=== PATIENT | female | born 1955 | race Caucasian/White ===

== ENCOUNTER 2017-04-05 10:58 | Inpatient (IN) | payer BC ==
[2017-04-05] MEDS ORDERED: Ondansetron HCl/PF 4 MG/2 ML Vial ONE ×2 (13:26→16:08)
[2017-04-05] MEDS ORDERED: Morphine 4 MG/ML VIAL ONE ×2 (13:26→18:39)
[2017-04-05] MEDS ORDERED: Ampicillin/Sulbactam 3 GM, Syringe 1.6 ML in Sterile Water 6.4 ML SLOW IVP SCH ×2 (13:30→22:00)
[2017-04-05] MEDS ORDERED: Sodium Chloride 0.9% 1,000 ML IV SCH (15:08)
[2017-04-05] MEDS ORDERED: Ondansetron HCl/PF 4 MG/2 ML Vial IVP PRN ×3 (15:09→19:30)
[2017-04-05] MEDS ORDERED: PROVENTIL INHALER 6.7 G (200 INHALATIONS) INH PRN (15:09)
[2017-04-05 15:11] VITALS: BMI 36.6
[2017-04-05] MEDS ORDERED: Chlorhexidine Gluconate 15 ML UDCUP SSP ONE (15:31)
[2017-04-05] MEDS ORDERED: Lidocaine 2% w/Epinephrine 1:200K 20 ML VIAL ONE (15:31)
[2017-04-05] MEDS ORDERED: Morphine PF 1 MG/ML SYR IVP PRN (15:33)
[2017-04-05] MEDS ORDERED: Fentanyl 100 MCG/2 ML VIAL ONE ×2 (15:40→18:55)
[2017-04-05] MEDS ORDERED: Oxymetazoline HCl 0.05% ( 15 ML ) ONE (15:40)
[2017-04-05] MEDS ORDERED: Morphine 4 MG/ML Carpuject ONE (15:47)
[2017-04-05] MEDS ORDERED: Propofol 200 MG/20 ML VIAL ONE (16:08)
[2017-04-05] MEDS ORDERED: Lidocaine 2% PF 10 ML AMP (For Epidural Use) ONE (16:08)
[2017-04-05] MEDS ORDERED: ePHEDrine/0.9% NaCl/PF SYRINGE 50 mg/10 ml ONE (16:08)
[2017-04-05] MEDS ORDERED: PHENYLEPHRINE-NS 100 MCG/ML 10 ML SYRINGE ONE (16:08)
[2017-04-05] MEDS ORDERED: Succinylcholine Chloride 20 MG/ML 10 ml SYRINGE FS ONE (16:08)
[2017-04-05] MEDS ORDERED: Dexamethasone 20 MG/5 ML VIAL ONE (16:08)
--- NOTE | 2017-04-05 16:08 | HP ---
HISTORY OF PRESENT ILLNESS: Ms. Dial is a 61-year-old woman. She has been experimenting some redness and pain in her submandibular area. She was seen at an out of facility ER and she was e valuated by Oral surgery and she was transferred to this facility for management. According to the p [facility], her problem started about 3 days ago. She was found to have submandibular cellulitis with po ssible osteomyelitis. She denies any fever. PAST MEDICAL HISTORY: Remarkable for hypertension. She denies heart disease, lung disease, liver di sease. PAST SURGICAL HISTORY: Remarkable for right knee surgery. ALLERGIES: She has allergy to SULFA. SOCIAL HISTORY: She is an active smoker. She has a [id number] history of cigarette smoking. She denies drug abuse. She claims that she drinks socially. FAMILY HISTORY: Reviewed and is not contributory. HOME MEDICATIONS: Not available at this time for identification. REVIEW OF SYSTEMS: Constitutional: She denies any fever, denies weakness. HEENT: No headache. No ocular pain, no sor e throat, no rhinorrhea, no earache, no epistaxis. Neck: No neck pain, no neck stiffness. Cardiova scular: No shortness of breath. No chest pain. Pulmonary: No coughing. Gastrointestinal: No paul sea, no vomiting, no diarrhea, no abdominal pain. Genitourinary: No dysuria, no hematuria. Endocri nology: No heat or cold intolerance. No polyuria, polydipsia or polyphagia. Musculoskeletal: Some pain in the submandibular area associated with cellulitis. Skin: As mentioned above. Allergies: No hay fever. Hematology: No abnormal bleeding, no ecchymosis. Lymphatic: No palpable lymphadenop athy, no painful lymphadenopathy. Psychiatric: No anxiety. She is very hostile. Neurologic: No s eizure. PHYSICAL EXAMINATION: At the current time, GENERA: She is alert, oriented, in no distress and as mentioned earlier, very hostile complaining th at too many people are asking her questions. VITAL SIGNS: Showed temperature of 99.2, pulse rate 80, respiratory rate 20, blood pressure 102/71. HEENT: Head is normocephalic and atraumatic. Both pupils are equally reactive. Ears and nose are n ormal. Oral mucosa is moist. Pharyngeal area is clear with no exudate. No hyperemia. She has some redness in the submandibular area and which is very tender according to the patient, she did not let me touch. NECK: Supple. There is no distention of the jugular vein. No lymphadenopathy felt. Thyroid gland not palpable. There is no carotid bruit. CHEST: Symmetrical with regular S1, S2. LUNGS: Clear. ABDOMEN: Soft. Bowel sounds are heard, could not appreciate any organomegaly. There is no focal ar ea of tenderness. EXTREMITIES: Limbs showed no edema. NEUROLOGIC: She moves all extremities. LABORATORY DATA: Chemistry and electrolytes, CBC are requested. ASSESSMENT AND PLAN: This is a 61-year-old woman with the history of hypertension who is being admitted with sub mandibular cellulitis. Oral Surgery referred the patient for admission and we were consulted. Sharlene graves orders.
[2017-04-05] MEDS ORDERED: Sodium Chloride 0.9% 10 ML ONE (16:13)
[2017-04-05] MEDS: Sodium Chloride 0.9% 1,000 ML IV SCH (16:23)
[2017-04-05] MEDS ORDERED: Clindamycin/D5W 900 MG in Premix Bag 1 BAG IVPB SCH (17:00)
[2017-04-05] MEDS ORDERED: Morphine Sulfate 2 MG/ML SYRINGE SLOW IVP PRN (18:06)
[2017-04-05] MEDS ORDERED: Promethazine HCl 25 MG/ML VIAL SLOW IVP PRN (18:06)
[2017-04-05] MEDS ORDERED: Promethazine HCl 25 MG/ML VIAL IM PRN (18:06)
[2017-04-05] MEDS ORDERED: Ondansetron ODT 4 MG TAB SL PRN (19:30)
[2017-04-05 20:46] LABS: #Basophils 0.1 thou/uL (0.0-0.2); #Lymphocytes 0.4 thou/uL (1.20-3.40); #Monocytes 0.4 thou/uL (0.11-0.59); %Basophils 1.1 % (0.0-1.0); %Eosinophils 0.3 % (0.0-10.0); Hematocrit 37.9 % (36.0-47.0); Mean Platelet Volume 6.7 fL (7.4-10.4); Red Blood Cell (RBC) Count 4.36 mill/uL (4.20-5.40); White Blood Cell (WBC) Count 11.9 thou/uL (4.8-10.8)
[2017-04-05] MEDS: Famotidine/PF 20 mg/2ml Vial SLOW IVP SCH (21:00)
[2017-04-05] MEDS: Chlorhexidine Gluconate 15 ML UDCUP SSP SCH (21:00)
[2017-04-05 21:04] LABS: ALT (SGPT) 10 U/L (8-55); AST (SGOT) 10 U/L (5-34); Alkaline Phosphatase 31 U/L (40-150); Anion Gap 13 mmol/L (10-20); BUN (Urea Nitrogen) 9 mg/dL (9.8-20.1); Bilirubin, Total 0.3 mg/dL (0.2-1.2); Calc. Creatinine Clearance 167 mL/min (70-130); Calcium 8.8 mg/dL (7.8-10.44); Carbon Dioxide 26 mmol/L (22-29); Chloride 102 mmol/L (98-107); Estimated GFR-MDRD Greater than 90; Globulin 3.2 g/dL (2.4-3.5); Protein, Total 6.5 g/dL (6.0-8.3)
[2017-04-05] MEDS ORDERED: Ampicillin/Sulbactam 3 GM in Sodium Chloride 0.9% 100 ML SLOW IVP SCH (22:00)
[2017-04-06] MEDS: Clindamycin/D5W 900 MG in Premix Bag 1 BAG IVPB SCH ×2 (01:04→09:55)
[2017-04-06] MEDS: Sodium Chloride 0.9% 1,000 ML IV SCH ×2 (04:53→17:30)
[2017-04-06] MEDS: Morphine PF 1 MG/ML SYR IVP PRN ×4 (05:00→20:40)
[2017-04-06] MEDS: Chlorhexidine Gluconate 15 ML UDCUP SSP SCH ×2 (09:54→20:38)
[2017-04-06] MEDS: Enoxaparin Sodium 40 MG/0.4 ML SYRINGE SC SCH (09:55)
[2017-04-06] MEDS: Famotidine/PF 20 mg/2ml Vial SLOW IVP SCH ×2 (09:55→20:40)
[2017-04-06] MEDS: Meropenem 1 GM in Sodium Chloride 0.9% 100 ML IVPB SCH (17:07)
--- NOTE | 2017-04-06 17:31 | PDOC.PN ---
- Subjective Encounter Start Date: 04/06/17 Encounter Start Time: 17:30 Ms. Dial was seen today for submandibular abscess with osteomyelitis. She says she has some pain in her jaw, but this is improved with pain medication - Objective Resuscitation Status: Resuscitation Status FULL:Full Resuscitation MAR Reviewed: Yes Vital Signs & Weight: Vital Signs (12 hours) Temp Pulse Resp BP Pulse Ox 04/06/17 16:25 98.2 F 87 16 112/65 93 L 04/06/17 12:25 97.5 F L 92 20 109/72 92 L 04/06/17 08:31 98.3 F 91 18 134/82 96 04/06/17 08:00 98.2 F 88 16 Result Diagrams: 04/05/17 20:36 04/05/17 20:36 Phys Exam - Physical Examination HEENT: PERRLA + submental edema Respiratory: no wheezing, no rales, no rhonchi, clear to auscultation bilateral Cardiovascular: RRR, no significant murmur Gastrointestinal: soft, non-tender, positive bowel sounds Musculoskeletal: no edema Dx/Plan (1) Submandibular abscess Code(s): K12.2 - CELLULITIS AND ABSCESS OF MOUTH Status: Acute (2) Osteomyelitis of mandible Code(s): M27.2 - INFLAMMATORY CONDITIONS OF JAWS Status: Acute (3) Hypertension Code(s): I10 - ESSENTIAL (PRIMARY) HYPERTENSION Status: Acute - Plan * Submandibular abscess and osteomyelitis- This has been I&D'd. Antibiotics have been changed to Meropenem * HTN- blood pressure is controlled on Olmesartan * She will need outpatient IV antibiotics arranged.
--- NOTE | 2017-04-06 17:31 | CON ---
DATE OF CONSULTATION: 04/06/2017 REASON FOR CONSULTATION: Submandibular infection with osteomyelitis. HISTORY OF PRESENT ILLNESS: A 61-year-old lady who has a history of hypertension and developed infla mmatory process in the right mandibular body region 5 weeks prior to admission. The patient was seen by an urgent care clinic and given oral antimicrobial therapy with followup with her dentist. She h ad a tooth removed from the right mandibular region and placed on oral antimicrobial therapy without improvement in the inflammatory process. The swelling migrated towards the anterior mandibular regio n and submental area. She went back to the dentist who removed another tooth and gave her more antim icrobials without improvement and then she went back to the doctor and had all her mandibular teeth r emoved at that time with no improvement in the swelling. The dentist told her to go to the emergency room and she was then assessed by Dr. Cai who diagnosed submental abscess with surrounding cell ulitis and osteomyelitis of the anterior mandible as demonstrated by CT scan of the neck. This was l ocalized in the anterior mandible. The patient was transferred to [facility] because of the need for surgical intervention. The patient has had I&D by the oral surgeon. She is now in her sec ond postop day, moderate pain at the site of the surgical intervention. No headaches, no visual symp toms. No dyspnea, cough or sputum production. No abdominal pain or diarrhea. No genitourinary symp toms. No joint symptoms or neurological symptoms. PAST MEDICAL HISTORY: Hypertension. PAST SURGICAL HISTORY: Right knee arthroscopy. ALLERGIES: SULFA DRUGS WITH RASH. SOCIAL HISTORY: Still smoking. FAMILY HISTORY: Noncontributory. CURRENT MEDICATIONS: Clindamycin and levofloxacin. FAMILY HISTORY: Noncontributory. PHYSICAL EXAMINATION: VITAL SIGNS: T-max 98.5. She is now afebrile. BP 109/72, pulse 92, respirations 20, O2 sat 92%-96% . GENERAL: Appears in no distress. SKIN: She has dressing over the submental region and peripheral IV access. No Méndez catheter. No l ymphadenopathy. HEENT: Ocular movements are conjugate. Sclerae are white. She has all the teeth removed in the low er mandible. There is area of what appears to be Heartwell drain segment sticking out from the floor o f her mouth, some tenderness in the submandibular area. NECK: Supple otherwise. LUNGS: With symmetric breath sounds, a few rhonchi. HEART: S1, S2, regular rate. No S3 or S4. ABDOMEN: Soft. Not distended. No ascites. No bladder distention. EXTREMITIES: No joint inflammatory activity. Pulses are 1+ in dorsalis pedis. Moves all extremitie s equally. NEUROLOGIC: Cognitive function appears to be intact. LABORATORY DATA: White cell count 11.9, hemoglobin 11, platelets 202. Sodium 137, creatinine 0.52 w ith glucose 125. Transaminases normal, alkaline phosphatase 31. Cultures are pending from the sampl es submitted. ASSESSMENT: 1. Hypertension. 2. Mandibular osteomyelitis, right side, status post numerous teeth removal and incision and drainag e of the abscess. DISCUSSION: The usual organisms including Streptococci, anaerobes, typical of the mouth saba are th e likely culprits here. The patient has osteomyelitis of the jaw and will go ahead and order PICC li ne placement and then treat her with meropenem or Invanz in the outpatient setting for a protracted p eriod of time. Discussed potential adverse reactions from the treatment including the hypersensitive reaction, possibility of diarrhea, kidney or liver and bone marrow toxicity and PICC line associated complications. Patient understood and agreed with management recommendations.
[2017-04-06] MEDS ORDERED: Meropenem 1 GM in Sodium Chloride 0.9% 100 ML IVPB SCH (22:00)
[2017-04-07] MEDS: Meropenem 1 GM in Sodium Chloride 0.9% 100 ML IVPB SCH ×3 (00:16→16:54)
--- NOTE | 2017-04-07 06:30 | OP ---
DATE OF PROCEDURE: 04/05/2017 PREOPERATIVE DIAGNOSES: 1. Submental abscess. 2. Bilateral mandibular osteomyelitis. POSTOPERATIVE DIAGNOSES: 1. Large submental abscess with surrounding cellulitis. 2. Osteomyelitis of the bilateral mandible. PROCEDURES PERFORMED: 1. Transcervical incision and drainage of submental abscess. 2. Debridement of bilateral mandible. 3. Biopsy of mandibular necrotic bone and inflammatory soft tissue. INDICATIONS: This is a 61-year-old female with significant history of hypertension, obesity, and 1-2 pack per day cigarette smoking. She began having perimandibular infections and infected teeth approximately 5 weeks ago. She has subsequently been through multiple rounds of p.o. antibiotics and removal of multiple teeth without resolution of her infection. She presented to [facility] yesterday with a progressive increase in submental swelling and cellulitis and I was consulted for an evaluation. She was subsequently transferred to [facility] for a higher level of care and for surgical intervention. On CT scan, the patient was found to have a large submental multiloculated abscess with surrounding cellulitic changes. Additionally, there was a concern on CT scan for the osteolytic process of bilateral mandible consistent with osteomyelitis. She was brought to the operating room at this time for surgical intervention. SURGEON: Damien Cai DDS, MD PROCEDURE IN DETAIL: The patient was identified in the preoperative holding area and all questions were answered. She was then transferred to the operating room and transferred to the operating room table in supine position. She was subsequently intubated by the Anesthesia Service and a general anesthetic was induced without difficulty. The oral endotracheal tube was taped to the face in normal fashion. A surgical timeout was performed. The patient's face and neck were then prepped and draped in a sterile manner. The oral cavity was then prepped with Peridex oral rinse and a throat pack was placed. Attention was turned to the submental region and local anesthetic was infiltrated with 2% lidocaine 1:200,000 epinephrine solution. A 15 blade was then used to make a skin incision down to the subcutaneous plane in the submental region. Blunt dissection then ensued using hemostats towards the inferior border of the mandible in the symphysis region. The abscess cavity was entered and a large amount of foul and very thick purulence was obtained. A culture swab was used to collect pus and sent for cultures. The dissection was widened and finger dissection then ensued to break up all the loculations in the submental space. These loculations continued posteriorly towards the region of the left submandibular space; however it is questionable whether or not the submandibular space was actually truly involved. This finger dissection ensued until all loculations were broken up and all purulence was drained. Copious irrigation then ensued using normal saline which was infused with bacitracin. The submental wound was then packed off with saline-bacitracin -soaked gauze and attention was turned intraorally. A crestal incision was made using a 15 blade extending from the right first molar region to the left first molar region. This was done after local anesthetic was infiltrated throughout the mandibular region as well using a new needle. A full thickness mucoperiosteal flap was then raised using a periosteal elevator. There was significant purulence obtained from the right mandibular body region and a large bony defect was also encountered in this area as was expected based on the CT scan. There were pieces of necrotic bone and large amounts of inflammatory soft tissue in this bone defect on the right mandible. A lingual and facial flap was developed in a subperiosteal plane to expose the entire bilateral anterior mandible from body to body. The areas of necrotic bone primarily focused in the right mandibular body extending to the right mandibular parasymphysis on the lingual and down into the area of the genial tubercles was debrided as well as I was able to using a combination of burs and hand curettes. Portions of the debrided necrotic bone and inflammatory soft tissues were sent both for pathology and for culture. This debridement process continued until it was felt that all of the compromised tissue had been removed and good bleeding bone was encountered. Access to the lingual inferior mandible was difficult in the genial tubercle areas and this area was debrided as best possible. The sockets from the recent extractions were curetted clean as well. All of these wounds were also copiously irrigated with bacitracin infused saline. The extraoral submental dissection was then connected to the intraoral dissection along the anterior lingual vestibule region. A 1/4-inch Conrad drain was doubled over on itself and was passed between these two wounds. This drain was secured to the skin with a 3-0 nylon drain stitch. A 7 flat ANTHONY drain was cut and also used to irrigate all the different areas of loculations of the abscess with the bacitracin infused saline. Another 1/4- inch Conrad drain was placed into the area of the right mandibular body bony defect. This drain was sewed to the gingiva using 4-0 chromic gut suture. After additional irrigation, the intraoral wounds were closed with interrupted 4 -0 chromic gut suture. The oral cavity was irrigated and suctioned free of debris and the throat pack was removed. An orogastric tube was placed and suctioned and removed. Gauze with extraoral tails was placed bilaterally to catch any drainage and the oral airway was placed by the Anesthesia team. The face and neck were cleaned and a surgical dressing was placed over the submental wound. The patient was turned over to Anesthesia for emergence and extubation which ensued without complication. INTRAVENOUS FLUIDS: Please see the anesthetic record. ESTIMATED BLOOD LOSS: 50 mL SPECIMENS: Purulence from the submental abscess. Right mandibular necrotic bone and inflammatory tissue. FINDINGS: Large bone defect, right mandibular body with necrotic bone and inflammatory tissue. This necrotic bone and inflammatory tissue continued to the right mandibular parasymphysis on the lingual and extended around towards the left mandibular parasymphysis region as well. Large foul purulence from the submental space. DRAINS: A 1/4-inch [place] to the submental wound as well as to the right mandibular intraoral wound. IMPLANTS: None. COMPLICATIONS: None. DISPOSITION: The patient was extubated, transferred to the recovery room in good condition. JOSETTE
[2017-04-07] MEDS: Chlorhexidine Gluconate 15 ML UDCUP SSP SCH ×2 (08:59→20:46)
[2017-04-07] MEDS: Famotidine/PF 20 mg/2ml Vial SLOW IVP SCH ×2 (09:00→20:46)
[2017-04-07] MEDS: Enoxaparin Sodium 40 MG/0.4 ML SYRINGE SC SCH (09:00)
[2017-04-07] MEDS: Sodium Chloride 0.9% 1,000 ML IV SCH ×2 (09:06→20:45)
[2017-04-07] MEDS: Morphine PF 1 MG/ML SYR IVP PRN ×2 (09:10→12:51)
[2017-04-07] MEDS ORDERED: HYDROcodone/Acetaminophen 10/325 mg Tablet PO PRN (13:27)
[2017-04-07] MEDS: HYDROcodone/Acetaminophen 10/325 mg Tablet PO PRN ×2 (13:43→20:46)
--- NOTE | 2017-04-07 13:45 | SPC ---
SONOGRPAHIC-GUIDED LEFT UPPER EXTREMITY PICC PLACEMENT: HISTORY: Jaw infection. Need for long-term antibiotics. FINDINGS: After explaining the procedure and answering all questions, the left upper extremity was prepped and draped in the usual sterile fashion. Sterile technique, buffered local anesthesia, sonographic margi nce, and a 22-gauge needle were used to carefully access the left cephalic vein. Standard technique was then used to place the tip of a 5 Malagasy single-lumen PICC so that the tip lies at the level of t he cavoatrial junction. The catheter was flushed and secured externally. The patient tolerated the procedure well and was returned in unchanged condition. FLUORO TIME=0.4 minutes. IMPRESSION: Technically successful left upper extremity PICC placement. Catheter is now ready for use. POS: JOMAR
--- NOTE | 2017-04-07 17:49 | PDOC.PN ---
- Subjective Encounter Start Date: 04/07/17 Encounter Start Time: 17:48 Ms. Dial was seen today in follow-up of submandibular abscess and osteomyelitis. She does not have any complaints. She says the pain in her jaw is better controlled now. - Objective Resuscitation Status: Resuscitation Status FULL:Full Resuscitation MAR Reviewed: Yes Vital Signs & Weight: Vital Signs (12 hours) Temp Pulse Resp BP Pulse Ox 04/07/17 16:34 98.5 F 67 16 136/83 97 04/07/17 08:59 98.3 F 87 16 93 L 04/07/17 08:24 98.3 F 87 16 114/75 93 L I&O: 04/06/17 04/07/17 04/08/17 06:59 06:59 06:59 Intake Total 2245 150 Balance 2245 150 Result Diagrams: 04/05/17 20:36 04/05/17 20:36 Phys Exam - Physical Examination HEENT: PERRLA + minimal swelling in the submanibular area, mild erythema Respiratory: no wheezing, no rales, no rhonchi, clear to auscultation bilateral Cardiovascular: RRR, no significant murmur Gastrointestinal: soft, non-tender, positive bowel sounds Musculoskeletal: no edema Dx/Plan (1) Submandibular abscess Code(s): K12.2 - CELLULITIS AND ABSCESS OF MOUTH Status: Acute (2) Osteomyelitis of mandible Code(s): M27.2 - INFLAMMATORY CONDITIONS OF JAWS Status: Acute (3) Hypertension Code(s): I10 - ESSENTIAL (PRIMARY) HYPERTENSION Status: Acute (4) Tobacco abuse Code(s): Z72.0 - TOBACCO USE Status: Acute - Plan * Cellulitis, and absecss with osteomyelitis of the mandible- continue Meropenem * Tobacco abuse- discussed smoking cessation * HTN- blood pressure is controlled- continue Omesartan * Await final culture results * Outpatient antibiotics are being arranged.
[2017-04-08] MEDS: Meropenem 1 GM in Sodium Chloride 0.9% 100 ML IVPB SCH ×3 (00:45→16:40)
[2017-04-08] MEDS: Famotidine/PF 20 mg/2ml Vial SLOW IVP SCH (07:46)
[2017-04-08] MEDS: Enoxaparin Sodium 40 MG/0.4 ML SYRINGE SC SCH (07:50)
[2017-04-08] MEDS: Sodium Chloride 0.9% 1,000 ML IV SCH (07:52)
[2017-04-08] MEDS: Chlorhexidine Gluconate 15 ML UDCUP SSP SCH ×2 (09:16→21:11)
[2017-04-08 10:11] LABS: #Basophils 0.1 thou/uL (0.0-0.2); #Eosinphils 0.3 thou/uL (0.0-0.7); #Lymphocytes 1.3 thou/uL (1.20-3.40); #Monocytes 0.7 thou/uL (0.11-0.59); #Neutrophils 4.2 thou/uL (1.40-6.50); %Basophils 0.8 % (0.0-1.0); %Lymphocytes 19.9 % (21.0-51.0); Hematocrit 35.8 % (36.0-47.0); Mean Platelet Volume 6.8 fL (7.4-10.4); Red Blood Cell (RBC) Count 4.15 mill/uL (4.20-5.40); White Blood Cell (WBC) Count 6.5 thou/uL (4.8-10.8)
--- NOTE | 2017-04-08 12:35 | PQF ---
CLINICAL DOCUMENTATION IMPROVEMENT CLARIFICATION FORM: ICD-10 Updated PLEASE DO AN ADDENDUM TO THE PROGRESS NOTE WITH ANY DOCUMENTATION UPDATES OR ADDITIONS AND CARRY THROUGH TO DC SUMMARY. THANK YOU. DATE: 04/08/17 ATTN: DR. PADRON Please exercise your independent, professional judgment in responding to the clarification form. Clinical indicators are provided on the bottom of this form for your review Please check appropriate box(s): [ x ] Excisional Debridement: [ ] Excised [ ] Cut away [ ] Other: Depth / layer: (deepest layer of debridement): [ ] Skin[ ] SubQ Tissue [ ] Fascia [ ] Muscle [ ] Tendon [ x ] Bone Appearance of wound: (e.g., down to fresh bleeding tissue, etc.)___ Margins: (please specify): / x x Instruments used: [ ] Scissors [ ] Scalpel [ x] Curette [ ] Soft tissue clipper [ ] Other: [ ] Non-excisional Debridement: (Removal by ?ushing, brushing, chemical, or washing) [ ] Incision and Drainage only (No Debridement): Depth:[ ] Skin [ ] Sub Q[ ] Into soft tissue [ ] Escharectomy [ ] Other procedure diagnosis [ ] Unable to determine For continuity of documentation, please document condition throughout progress notes and discharge summary. Thank You. CLINICAL INDICATORS - SIGNS / SYMPTOMS / LABS "THESE AREAS OF NECROTIC BONE PRIMARILY FOCUSED IN THE RIGHT MANDIBULAR BODY EXTENDING TO THE RIGHT MANDIBULAR PARASYMPHYSIS ON THE LINGUAL AND DOWN INTO THE AREA OF THE GENIAL TUBERCLES WAS DEBRIDED WELL ASI WAS ABLE TO USING A COMBINATION OF BURS AND HAND CURETTES. PORTIONS OF THE DEBRIDED NECROTIC BONE AND INFLAMMATORY SOFT TISSUES WERE SENT BOTH FOR PATHOLOGY AND FOR CULTURE." RISKS: MANDIBULAR ABSCESS AND OSTEOMYELITIS TREATMENT: ORAL SURGERY CONSULT SURGICAL INTERVENTION (This form is maintained as a part of the permanent medical record) 2014 [employer]. All Rights Reserved DEMETRIO [email or web address] Office: [phone] [facility]
--- NOTE | 2017-04-08 12:39 | PDOC.PN ---
- Subjective Encounter Start Date: 04/08/17 Encounter Start Time: 08:00 -: old records requested/rev Patient seen and examined. No new complaints. No overnight events - Objective Resuscitation Status: Resuscitation Status FULL:Full Resuscitation MAR Reviewed: Yes Vital Signs & Weight: Vital Signs (12 hours) Temp Pulse Resp BP Pulse Ox 04/08/17 11:24 98.1 F 66 16 133/82 95 04/08/17 09:00 98.5 F 71 16 94 L 04/08/17 07:17 98.5 F 71 16 157/90 H 94 L 04/08/17 00:53 98.4 F 69 18 127/81 95 I&O: 04/07/17 04/08/17 04/09/17 06:59 06:59 06:59 Intake Total 2245 2150 Balance 2245 2150 Result Diagrams: 04/08/17 09:44 04/05/17 20:36 Phys Exam - Physical Examination Constitutional: NAD HEENT: PERRLA, moist MMs, sclera anicteric dressing at mandible Neck: no JVD, supple Respiratory: no wheezing, no rales, no rhonchi Cardiovascular: RRR, no significant murmur, no rub Gastrointestinal: soft, non-tender, no distention, positive bowel sounds Musculoskeletal: no edema, pulses present Neurological: non-focal, normal sensation, moves all 4 limbs Psychiatric: normal affect, A&O x 3 Skin: no rash, normal turgor Dx/Plan (1) Hypertension Code(s): I10 - ESSENTIAL (PRIMARY) HYPERTENSION Status: Acute (2) Osteomyelitis of mandible Code(s): M27.2 - INFLAMMATORY CONDITIONS OF JAWS Status: Acute (3) Submandibular abscess Code(s): K12.2 - CELLULITIS AND ABSCESS OF MOUTH Status: Acute (4) Tobacco abuse Code(s): Z72.0 - TOBACCO USE Status: Acute (5) Obesity (BMI 30-39.9) Code(s): E66.9 - OBESITY, UNSPECIFIED Status: Chronic - Plan cont current plan of care, continue antibiotics, social work coordinator * continue current iv antibiotics * later on today oral surgeon will see and change dressing * pt wants to stay one more night in hospital and she prefer to go home tomorrow * she will get iv antibiotics via dr peoples office * medication reviewed as below * symptomatic treatment. Review of Systems - Review of Systems ENT: negative: Ear Pain, Ear Discharge, Nose Pain, Nose Discharge, Nose Congestion, Mouth Pain, Mouth Swelling, Throat Pain, Throat Swelling, Other Respiratory: negative: Cough, Dry, Shortness of Breath, Hemoptysis, SOB with Excertion, Pleuritic Pain, Sputum, Wheezing Cardiovascular: negative: Chest Pain, Palpitations, Orthopnea, Paroxysmal Noc. Dyspnea, Edema, Light Headedness, Other Gastrointestinal: negative: Nausea, Vomiting, Abdominal Pain, Diarrhea, Constipation, Melena, Hematochezia, Other Genitourinary: negative: Dysuria, Frequency, Incontinence, Hematuria, Retention , Other Musculoskeletal: negative: Neck Pain, Shoulder Pain, Arm Pain, Back Pain, Hand Pain, Leg Pain, Foot Pain, Other Skin: negative: Rash, Lesions, Justin, Bruising, Other - Medications/Allergies Allergies/Adverse Reactions: Allergies Allergy/AdvReac Type Severity Reaction Status Date / Time Sulfa (Sulfonamide Allergy Verified 06/28/16 12:28 Antibiotics) Medications: Current Medications Hydrocodone Bitart/Acetaminophen (Norton 10/325) 1 tab PO Q4H PRN PRN Reason: Pain 1ST LINE Last Admin: 04/07/17 20:46 Dose: 1 tab Hydrocodone Bitart/Acetaminophen (Norton 10/325) 2 tab PO Q4H PRN PRN Reason: Pain 2ND LINE Albuterol Sulfate (Proventil Hfa) 2 puff INH Q4HR PRN PRN Reason: BRONCHITIS Chlorhexidine Gluconate (Chlorhexidine Gluconate) 15 ml SSP BID [facility] Last Admin: 04/08/17 09:16 Dose: 15 ml Enoxaparin Sodium (Lovenox) 40 mg SC 0900 [facility] Last Admin: 04/08/17 07:50 Dose: 40 mg Famotidine (Pepcid) 20 mg PO BID [facility] Sodium Chloride (Normal Saline 0.9%) 1,000 mls @ 75 mls/hr IV .[id number] [facility] Last Admin: 04/08/17 07:52 Dose: 1,000 mls Meropenem 1 gm/ Sodium (Chloride) 100 mls @ 200 mls/hr IVPB [id number] [facility] Last Admin: 04/08/17 07:50 Dose: 100 mls Morphine Sulfate (Duramorph) 2 mg IVP Q4H PRN PRN Reason: Severe Pain (7-10) Last Admin: 04/07/17 12:51 Dose: 2 mg Olmesartan (Benicar) 40 mg PO DAILY BRITTANIE Last Admin: 04/08/17 07:49 Dose: 40 mg Ondansetron HCl (Zofran) 4 mg IVP Q6H PRN PRN Reason: Nausea/Vomiting
[2017-04-08] MEDS: Famotidine 20 MG TAB PO SCH (21:11)
[2017-04-08 23:57] VITALS: TEMP 98.1
[2017-04-09] MEDS: Meropenem 1 GM in Sodium Chloride 0.9% 100 ML IVPB SCH ×2 (01:12→08:06)
[2017-04-09] MEDS: Sodium Chloride 0.9% 1,000 ML IV SCH (06:03)
[2017-04-09] MEDS: Famotidine 20 MG TAB PO SCH (08:09)
[2017-04-09] MEDS: Chlorhexidine Gluconate 15 ML UDCUP SSP SCH (08:09)
[2017-04-09] MEDS: Enoxaparin Sodium 40 MG/0.4 ML SYRINGE SC SCH (08:10)
[2017-04-09 08:51] VITALS: BP 170/95
[2017-04-09] MEDS: HYDROcodone/Acetaminophen 10/325 mg Tablet PO PRN (09:35)
--- NOTE | 2017-04-09 12:11 | PDOC.PN ---
- Subjective Encounter Start Date: 04/09/17 Encounter Start Time: 08:20 Patient seen and examined. No new complaints. No overnight events - Objective Resuscitation Status: Resuscitation Status FULL:Full Resuscitation MAR Reviewed: Yes Vital Signs & Weight: Vital Signs (12 hours) Temp Pulse Resp BP Pulse Ox 04/09/17 08:50 98.1 F 75 16 170/95 H 92 L 04/09/17 08:10 98.1 F 75 16 92 L 04/09/17 04:00 98.1 F 73 16 144/82 H 96 I&O: 04/08/17 04/09/17 04/10/17 06:59 06:59 06:59 Intake Total 2150 702 575 Balance 2150 572 575 Result Diagrams: 04/08/17 09:44 04/05/17 20:36 Phys Exam - Physical Examination Constitutional: NAD HEENT: PERRLA, moist MMs, sclera anicteric Neck: no JVD, supple Respiratory: no wheezing, no rales, no rhonchi Cardiovascular: RRR, no significant murmur, no rub Gastrointestinal: soft, non-tender, no distention, positive bowel sounds Musculoskeletal: no edema, pulses present Neurological: non-focal, normal sensation, moves all 4 limbs Psychiatric: normal affect, A&O x 3 Skin: no rash, normal turgor Dx/Plan (1) Hypertension Code(s): I10 - ESSENTIAL (PRIMARY) HYPERTENSION Status: Acute (2) Osteomyelitis of mandible Code(s): M27.2 - INFLAMMATORY CONDITIONS OF JAWS Status: Acute (3) Submandibular abscess Code(s): K12.2 - CELLULITIS AND ABSCESS OF MOUTH Status: Acute (4) Tobacco abuse Code(s): Z72.0 - TOBACCO USE Status: Acute (5) Obesity (BMI 30-39.9) Code(s): E66.9 - OBESITY, UNSPECIFIED Status: Chronic - Plan cont current plan of care, continue antibiotics, 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 Review of Systems - Review of Systems ENT: negative: Ear Pain, Ear Discharge, Nose Pain, Nose Discharge, Nose Congestion, Mouth Pain, Mouth Swelling, Throat Pain, Throat Swelling, Other Respiratory: negative: Cough, Dry, Shortness of Breath, Hemoptysis, SOB with Excertion, Pleuritic Pain, Sputum, Wheezing Cardiovascular: negative: Chest Pain, Palpitations, Orthopnea, Paroxysmal Noc. Dyspnea, Edema, Light Headedness, Other Gastrointestinal: negative: Nausea, Vomiting, Abdominal Pain, Diarrhea, Constipation, Melena, Hematochezia, Other Genitourinary: negative: Dysuria, Frequency, Incontinence, Hematuria, Retention , Other Musculoskeletal: negative: Neck Pain, Shoulder Pain, Arm Pain, Back Pain, Hand Pain, Leg Pain, Foot Pain, Other - Medications/Allergies Allergies/Adverse Reactions: Allergies Allergy/AdvReac Type Severity Reaction Status Date / Time Sulfa (Sulfonamide Allergy Verified 06/28/16 12:28 Antibiotics)
--- NOTE | 2017-04-09 13:35 | DIS ---
DATE OF ADMISISON: 04/05/2017 DATE OF DISCHARGE: 04/09/2017 PRIMARY CARE PHYSICIAN: Dr. Tess Brooks. DISCHARGE DISPOSITION: Home with outpatient IV antibiotic therapy. PRIMARY DISCHARGE DIAGNOSES: 1. Osteomyelitis of mandible. 2. Submandibular abscess, status post incision and drainage. SECONDARY DISCHARGE DIAGNOSES: 1. Obesity with BMI 36. 2. Tobacco abuse disorder. 3. Hypertension. PRIMARY PROCEDURE/OPERATION: 1. Dr. Damien Cai did I&D of submental abscess, debridement of bilateral mandible and biopsy o f the mandibular necrotic bone. 2. PICC line placement. SIGNIFICANT LABORATORY DATA: WBC 6.5, hemoglobin 11.3, platelets 303. Sodium 137, potassium 3.5, BU N 9, creatinine 0.52, glucose 125, calcium 8.8, AST 10, ALT 10, alkaline phosphatase 31, albumin 3.3. Culture from mandible is pending. DISCHARGE MEDICATIONS: Tylenol 500 mg p.o. q.4 hours p.r.n., ProAir HFA 2 puffs q.4 hours p.r.n., Tu ms 1 gram p.o. daily p.r.n., chlorhexidine 15 mL SSP b.i.d., ibuprofen 200 mg p.o. q.6 hours p.r.n., meropenem 1 gram IV q.8 hours for 10 days, Benicar 40 mg p.o. daily, Florastor 250 mg p.o. daily. CONTRAINDICATIONS: None. CODE STATUS: FULL CODE. INPATIENT CONSULTANTS: Dr. Damien Cai did surgical procedure. Dr. Hernandez was consulted to hayley nicholson about IV antibiotic therapy. CONTRAINDICATIONS: None. CODE STATUS: FULL CODE. DISCHARGE PLAN: Post hospital, the patient is discharged home with outpatient IV antibiotic therapy. The patient will follow up with Dr. Hernandez, Dr. Damien Cai and primary care physician as instr ucted. HOSPITAL COURSE: A 61-year-old female who was admitted by Dr. Thang Jeffries. Please see his H&P f or further details. The patient was having submandibular swelling, redness and pain. The patient wa s diagnosed with a submandibular abscess. Patient also had osteomyelitis of mandible. The patient r equired surgical debridement by Dr. Damien Cai. Biopsy was obtained. Dr. Hernandez was consulted and he recommended IV antibiotic therapy. Patient was getting meropenem while in hospital. Dr. Atkins s will decide about final antibiotic therapy, meropenem versus Invanz and duration of therapy will be decided by Dr. Hernandez. While in hospital, the patient did very well. The patient is seen and examined on the day of dischar ge, the patient is planned for discharge today with outpatient IV antibiotic therapy. Patient will r esume all her previous medications.
== END 2017-04-09 10:39 | disposition home or self-care (01) | DRG 129 ==
LOC: ERS 10:58 → OBSVTOIN 15:03 → INTOOBSV 15:03 → SURG A 15:03
PROVIDERS: ADMIT Hospitalist; ATTEND Hospitalist
PROC: 0NBT0ZZ Excision of Right Mandible, Open Approach (ICD-10-PCS; principal; 2017-04-05)
PROC: 0W950ZZ Drainage of Lower Jaw, Open Approach (ICD-10-PCS; 2017-04-05)
PROC: 0ND Head and Facial Bones, Extraction (ICD-10-PCS; 2017-04-05)
PROC: 02HV33Z Insertion of Infusion Device into Superior Vena Cava, Percutaneous Approach (ICD-10-PCS; 2017-04-07)
PROC: B548ZZA Ultrasonography of Superior Vena Cava, Guidance (ICD-10-PCS; 2017-04-07)
DX: M27.2 Inflammatory conditions of jaws (principal); K12.2 Cellulitis and abscess of mouth; I10 Essential (primary) hypertension; E66.9 Obesity, unspecified; Z68.36 Body mass index [BMI] 36.0-36.9, adult; F17.210 Nicotine dependence, cigarettes, uncomplicated; Z98.818 Other dental procedure status
CPT/HCPCS: 36415; 36569; 80053; 85025; 87070; 87102; 87205; 87206; 88307; 88311; 96374; 96375; A4216; C1751; J0295; J1100; J1650; J1956; J2001; J2185; J2270; J2274; J2405; J2704; J3010; J3490; J7050; S0028

== ENCOUNTER 2018-03-30 11:42 | Outpatient (CLI) | payer BC ==
--- NOTE | 2018-03-30 15:10 | MRI ---
MRI LEFT KNEE WITHOUT CONTRAST: HISTORY: S83.242A, tear of medial meniscus of left knee. COMPARISON: None. FINDINGS: Medial meniscus: There is a free edge tear of the posterior horn/body junction of the medial meniscu s, with blunting of the free edge, extending into the medial one-third fibers. There is moderate deg enerative signal of the posterior horn/body junction and posterior horn. There is medial gutter extr usion, 2 mm. A parameniscal cyst is present, posteromedially. Lateral meniscus: Intact. The ACL, PCL, MCL, and LCL are intact. Extensor mechanism: The quadriceps tendon and patella patellar tendon are intact. CARTILAGE: Patella-femoral compartment: There are high-grade cartilage fissures of the central trochlea, but th ere are cortical reactive marrow changes. Medial compartment: There is high-grade chondral fraying of the weight-bearing surface, medial femor al condyle, medial tibial plateau, with medial osteophyte formation and early subcortical reactive ma rrow changes. Lateral compartment: Intact. Muscles: The muscle signal and bulk are normal. Soft tissues: Posterior parameniscal cyst, measuring 2.4 cm transverse x 5 mm AP x 7 mm craniocaudal dimension. The posterior recess is a 4 mm ossified body. IMPRESSION: 1. Free edge tear of the posterior horn-body junction, medial meniscus, with moderate degenerative s ignal within the medial meniscal body, with 2-3 mm medial meniscal extrusion and loss of normal hoop stress. There is subsequent grade 3 chondromalacia with stress changes of the medial femoral condyle , suprameniscal surface. 2. Posterior parameniscal ganglion pseudocyst, measuring 2.4 x 0.5 x 0.6 cm. 3. Small ossified body within the posterior recess, and small ossified body within the popliteal fos sa. 4. High-grade cartilage fissures of the central trochlea with early marrow reactive changes. POS: [facility]
== END 2018-03-30 11:43 | disposition home or self-care (01) ==
LOC: MRI 11:42
PROVIDERS: ATTEND Orthopaedic Surgery
DX: S83.242A Other tear of medial meniscus, current injury, left knee, initial encounter (principal); M94.262 Chondromalacia, left knee; M67.462 Ganglion, left knee

== ENCOUNTER 2018-09-01 16:00 | Outpatient (CLI) | payer BC ==
--- NOTE | 2018-09-01 19:58 | MRI ---
LUMBAR SPINE MRI WITHOUT IV CONTRAST: 09/01/18 HISTORY: Chronic low back pain, injury while lifting, radiating down left lower extremity for several weeks. Multiplanar, multisequence MRI examination of the lumbar spine is performed. There are generalized di sc desiccation changes and ligament and facet hypertrophic changes. No significant abnormal marrow si gnal. Conus medullaris region is unremarkable terminating at L2. At L1-L2, no significant canal or lateral recess or foraminal stenosis. At L2-L3, ligament and facet hypertrophic changes without significant stenosis. At L3-L4, small disc bulging without significant canal, lateral recess, or foraminal stenosis. At L4-L5, slightly more prominent bulging with mild central canal and lateral recess stenosis and mil d bilateral foraminal stenosis. At L5-S1, mild diffuse disc bulging without significant associated stenosis. IMPRESSION: Generalized disc desiccation changes and ligament and facet hypertrophic changes. Mild stenosis at L4 -L5. Other findings as above. POS: [facility]
== END 2018-09-01 16:01 | disposition home or self-care (01) ==
LOC: SCSMRI 16:00
PROVIDERS: ATTEND Internal Medicine
DX: M47.26 Other spondylosis with radiculopathy, lumbar region (principal); M48.061 Spinal stenosis, lumbar region without neurogenic claudication
CPT/HCPCS: 72148

== ENCOUNTER 2021-12-12 13:24 | Outpatient (CLI) | payer BC ==
[2021-12-12 15:06] LABS: #Basophils 0.1 10x3/uL (0.0-0.2); #Eosinphils 0.2 10x3/uL (0.0-0.5); %Eosinophils 1.6 % (0.0-6.0); %Lymphocytes 11.5 % (18.0-47.0); %Monocytes 9.8 % (0.0-10.0); %Neutrophils 75.7 % (40.0-75.0); Hemoglobin 14.6 g/dL (12.0-15.5); Mean Corpuscular HGB CONC 31.1 g/dL (32.0-36.0); Mean Corpuscular Volume 86.9 fl (81.6-98.3); Mean Platelet Volume 10.5 fl (7.4-10.4); Platelet Count 276 10x3/uL (150-450); RBC Distribution Width 15.6 % (11.5-14.5); Red Blood Cell (RBC) Count 5.41 10x6/uL (3.90-5.03); White Blood Cell (WBC) Count 10.6 10x3/uL (3.5-10.5)
[2021-12-12 15:28] LABS: Anion Gap 14 mmol/L (10-20); BUN (Urea Nitrogen) 13 mg/dL (9.8-20.1); Calc. Creatinine Clearance 0 mL/min (70-130); Calcium 9.2 mg/dL (7.8-10.44); Carbon Dioxide 30 mmol/L (23-31); Chloride 102 mmol/L (98-107); Estimated GFR 99; Glucose 113 mg/dL (80-115); Sodium 142 mmol/L (136-145)
[2021-12-12 15:42] LABS: INR-International Normal Ratio 0.9; Prothrombin Time 10.1 sec (9.5-12.1)
== END 2021-12-12 13:25 | disposition home or self-care (01) ==
LOC: LABBT 13:24
PROVIDERS: ATTEND Orthopaedic Surgery
DX: Z01.818 Encounter for other preprocedural examination (principal); M17.11 Unilateral primary osteoarthritis, right knee; Z20.822 Contact with and (suspected) exposure to COVID-19
CPT/HCPCS: 80048; 85025; 85610; 87081; 87811; 93005; 93010